=== PATIENT | male | born 1935 | race Caucasian/White ===

== ENCOUNTER 2017-10-28 11:02 | Emergency (ER) | payer MEDICARE, OTHER ==
[~2017-10-28] VITALS: Ht 175.3 cm; Wt 102.1 kg
[~2017-10-28 11:02] MED LIST: ASPI-1265 PO; ATOR20TA66 PO; BENA40TA2 PO; DOCU100C40 PO; HYDR-565 PO; METO25TA6 PO; NITR0.4T51 SL; TERA10CA4 PO; TERA5CAP4 PO; TICA90TA PO
[2017-10-28] MEDS ORDERED: GUAI-647 PO (11:26)
[2017-10-28] MEDS ORDERED: CEPH-571 PO (11:26)
[2017-10-28 11:37] VITALS: BP 134/85
== END 2017-10-28 11:38 | disposition home or self-care (01) ==
LOC: ER 11:03
DX: J40 Bronchitis, not specified as acute or chronic (principal); I10 Essential (primary) hypertension; Z88.0 Allergy status to penicillin; Z88.8 Allergy status to other drugs, medicaments and biological substances; Z79.82 Long term (current) use of aspirin
CPT/HCPCS: 99283

== ENCOUNTER 2018-11-17 11:05 | Inpatient (IN) | payer MEDICARE ==
[~2018-11-17] VITALS: Ht 175.3 cm; Wt 89.0 kg
[~2018-11-17 11:05] MED LIST changes: -BENA40TA2 PO; +BENA40TA73 PO; +CEPH-571 PO; +HYDR-4353 PO; -HYDR-565 PO
[2018-11-17] MEDS ORDERED: nitroGLYCERIN 0.4mg/hour patch TD ONE (11:40)
[2018-11-17] MEDS ORDERED: aspirin 81mg tab.chew PO ONE (11:40)
[2018-11-17 11:51] LABS: BASOPHILS % (AUTO) 0.4 % (0-1); EOSINOPHILS # (AUTO) 0.6 X10'3 (0-0.9); EOSINOPHILS % (AUTO) 6.4 % (0-6); HEMATOCRIT 49.1 % (42.0-52.0); HEMOGLOBIN 16.7 g/dl (14.0-17.9); LYMPHOCYTES # (AUTO) 1.3 X10'3 (1.1-4.8); MEAN CORPUSCULAR HEMOGLOBIN 33.3 PG (27.0-31.0); MEAN CORPUSCULAR HGB CONC 34.1 % (33.0-36.5); MEAN CORPUSCULAR VOLUME 97.8 FL (78-98); MEAN PLATELET VOLUME 7.9 FL (7.4-10.4); MONOCYTES # (AUTO) 0.4 X10'3 (0-0.9); MONOCYTES % (AUTO) 4.6 % (2-12); NEUTROPHILS # (AUTO) 7.1 X10'3 (1.8-7.7); NEUTROPHILS % (AUTO) 74.6 % (42-75); PLATELET COUNT 188 X10'3 (140-440); RED BLOOD COUNT 5.02 X10'6 (4.70-6.10); RED CELL DISTRIBUTION WIDTH 14.1 % (11.5-14.5); WHITE BLOOD COUNT 9.5 X10'3 (4.5-11.0)
[2018-11-17 12:02] LABS: INR 1.1 INR; PARTIAL THROMBOPLASTIN TIME 29 SECONDS (22-32); PROTHROMBIN TIME 11.3 SECONDS (9.0-12.0)
[2018-11-17 12:05] LABS: ALANINE AMINOTRANSFERASE 20 U/L (12-78); ALBUMIN 3.6 G/DL (3.4-5.0); ALBUMIN/GLOBULIN RATIO 1.1 (1.1-1.5); ALKALINE PHOSPHATASE 118 IU/L (46-116); ANION GAP 12 (8-16); ASPARTATE AMINO TRANSFERASE 22 U/L (10-37); BILIRUBIN,TOTAL 0.8 MG/DL (0.1-1.0); BLOOD UREA NITROGEN 13 MG/DL (7-18); BUN/CREATININE RATIO 14.4 (5.4-32.0); CALCIUM 8.7 MG/DL (8.5-10.1); CHLORIDE 105 MMOL/L (99-107); GLUCOSE 115 MG/DL (70-104); POTASSIUM 3.5 MMOL/L (3.5-5.1); SODIUM 141 MMOL/L (135-145); TOTAL CARBON DIOXIDE 24.1 MMOL/L (24-32); eGFR 80 ML/MIN
[2018-11-17] MEDS ORDERED: OXYC-150 PO (12:27)
[2018-11-17] MEDS ORDERED: TERA5CAP4 PO (12:28)
[2018-11-17] MEDS ORDERED: BENA40TA8 PO (12:28)
[2018-11-17] MEDS ORDERED: DOCU-28 PO (12:28)
[2018-11-17] MEDS ORDERED: GABA-532 PO (12:38)
[2018-11-17] MEDS ORDERED: METO25TA6 PO (12:39)
[2018-11-17 13:11] LABS: CLARITY,URINE CLEAR (Clear); COLOR,URINE YELLOW (Yellow); GLUCOSE, URINE NEGATIVE (Neg); KETONES,URINE 15 mg/dl (Neg); LEUKOCYTE ESTERASE ,URINE NEGATIVE (Neg); NITRITES, URINE NEGATIVE (Neg); OCCULT BLOOD,URINE NEGATIVE (Neg); PH,URINE 5.5 (4.8-8.0); PROTEIN,URINE NEGATIVE (Neg); UROBILINOGEN,URINE 0.2 E.U/dL (0.2-1.0)
[2018-11-17 13:12] LABS: UA COLLECTION TYPE URINAL
[2018-11-17] MEDS ORDERED: mag hydrox/Alum hydrox/simeth 30ml oral suspension PO PRN (14:15)
[2018-11-17] MEDS ORDERED: magnesium 4gm in 100ml NS 100 ML IV PRN (14:15)
[2018-11-17] MEDS ORDERED: potassium Cl 40MEQ/NS 500ml 500 ML IV PRN ×2 (14:15)
[2018-11-17] MEDS ORDERED: ondansetron/PF 4mg/2ml inj IV PRN (14:15)
[2018-11-17] MEDS ORDERED: potassium Cl 20 mEq SR tablet PO PRN ×2 (14:15)
[2018-11-17] MEDS ORDERED: ipratropium/albuterol 3ml nebule NEB PRN (14:15)
[2018-11-17] MEDS ORDERED: magnesium hydroxide 30ml (MOM) UD suspension PO PRN (14:15)
[2018-11-17] MEDS ORDERED: magnesium 2GM in 50ml NS 50 ML IV PRN (14:15)
[2018-11-17] MEDS ORDERED: heparin 10,000 units/1 ML INJ IV PRN (14:25)
[2018-11-17] MEDS ORDERED: docusate sod 100mg capsule PO PRN (14:25)
[2018-11-17] MEDS ORDERED: heparin 10,000 units/1 ML INJ IV ONE (14:25)
[2018-11-17] MEDS ORDERED: oxyCODONE/APAP 10/325mg tablet PO PRN (14:25)
[2018-11-17] MEDS: heparin 25,000 UNIT/250ml bag 250 ML IV SCH (16:56)
--- NOTE | 2018-11-17 18:28 | NUR ---
Problems reprioritized. Patient report given, questions answered & plan of care reviewed with JUAN DIEGO Laguna.
[2018-11-17 19:00] VITALS: BP 110/65
[2018-11-17] MEDS: gabapentin 300mg capsule PO SCH (20:12)
[2018-11-17] MEDS: terazosin 5mg capsule PO SCH (20:12)
[2018-11-17] MEDS: metoprolol tartrate 25mg tablet PO SCH (20:13)
[2018-11-17] MEDS: acetaminophen 325mg tablet PO PRN (20:14)
[2018-11-17 23:00] VITALS: BP 125/76
[2018-11-18] MEDS ORDERED: morphine 4 MG/ML inj SYRINge IV ONE (04:40)
[2018-11-18 06:00] VITALS: BP 139/77
[2018-11-18 06:47] LABS: BASOPHILS % (AUTO) 0.4 % (0-1); EOSINOPHILS # (AUTO) 0.6 X10'3 (0-0.9); EOSINOPHILS % (AUTO) 6.2 % (0-6); HEMATOCRIT 46.8 % (42.0-52.0); HEMOGLOBIN 15.6 g/dl (14.0-17.9); LYMPHOCYTES # (AUTO) 1.8 X10'3 (1.1-4.8); LYMPHOCYTES % (AUTO) 19.3 % (21-51); MEAN CORPUSCULAR HEMOGLOBIN 32.9 PG (27.0-31.0); MEAN CORPUSCULAR HGB CONC 33.4 % (33.0-36.5); MEAN CORPUSCULAR VOLUME 98.5 FL (78-98); MEAN PLATELET VOLUME 8.3 FL (7.4-10.4); MONOCYTES # (AUTO) 0.6 X10'3 (0-0.9); MONOCYTES % (AUTO) 6.5 % (2-12); NEUTROPHILS # (AUTO) 6.2 X10'3 (1.8-7.7); NEUTROPHILS % (AUTO) 67.6 % (42-75); PLATELET COUNT 184 X10'3 (140-440); RED BLOOD COUNT 4.75 X10'6 (4.70-6.10); RED CELL DISTRIBUTION WIDTH 14.1 % (11.5-14.5); WHITE BLOOD COUNT 9.2 X10'3 (4.5-11.0)
[2018-11-18 06:55] LABS: ALANINE AMINOTRANSFERASE 17 U/L (12-78); ALBUMIN 3.4 G/DL (3.4-5.0); ALBUMIN/GLOBULIN RATIO 1.1 (1.1-1.5); ALKALINE PHOSPHATASE 107 IU/L (46-116); ANION GAP 11 (8-16); ASPARTATE AMINO TRANSFERASE 22 U/L (10-37); BILIRUBIN,TOTAL 0.8 MG/DL (0.1-1.0); BLOOD UREA NITROGEN 11 MG/DL (7-18); BUN/CREATININE RATIO 12.1 (5.4-32.0); CALCIUM 8.7 MG/DL (8.5-10.1); CHLORIDE 107 MMOL/L (99-107); CHOL/HDL RATIO 4.4 (0.00-4.99); CHOLESTEROL 170 MG/DL (0-200); CREATININE 0.91 MG/DL (0.60-1.10); GLUCOSE 118 MG/DL (70-104); HDL CHOLESTEROL 39 MG/DL (35-60); LDL CHOLESTEROL 118 MG/DL (50-100); POTASSIUM 3.7 MMOL/L (3.5-5.1); SODIUM 144 MMOL/L (135-145); TOTAL CARBON DIOXIDE 25.9 MMOL/L (24-32); TOTAL PROTEIN 6.5 G/DL (6.4-8.2); TRIGLYCERIDES 115 MG/DL (20-135); eGFR 79 ML/MIN
[2018-11-18] MEDS: gabapentin 300mg capsule PO SCH ×2 (07:38→13:00)
[2018-11-18] MEDS: terazosin 5mg capsule PO SCH (07:39)
[2018-11-18] MEDS: acetaminophen 325mg tablet PO PRN (07:39)
[2018-11-18] MEDS: metoprolol tartrate 25mg tablet PO SCH (07:42)
[2018-11-18] MEDS ORDERED: K and/or MAG REPLACEMENT MC SCH (08:00)
[2018-11-18] MEDS ORDERED: lisinopril 20mg tablet PO SCH (08:00)
[2018-11-18 11:00] VITALS: BP 131/73
[2018-11-18] MEDS ORDERED: ATOR20TA66 PO (14:36)
[2018-11-18] MEDS ORDERED: APIX5TAB3 PO (14:36)
[2018-11-18] MEDS: heparin 25,000 UNIT/250ml bag 250 ML IV SCH (15:22)
--- NOTE | 2018-11-18 16:48 | NUR ---
Removed pt.'s tele monitor and IV, pt tolerated well. Pt. accompanied by friend and wheeled down to private vehicle. Pt. took with him a bag of belongings, Ian's bedside medication, and cane. Pt. in stable condition at time of discharge, no longer on the unit.
== END 2018-11-18 16:45 | disposition home or self-care (01) | DRG 309 ==
LOC: ER 11:05 → ED HOLD 14:14 → PCU 3S 18:47
PROVIDERS: ADMIT Family Medicine; ATTEND Family Medicine
DX: I48.91 Unspecified atrial fibrillation (principal); G93.40 Encephalopathy, unspecified; R07.89 Other chest pain; I25.10 Atherosclerotic heart disease of native coronary artery without angina pectoris; N40.0 Benign prostatic hyperplasia without lower urinary tract symptoms; E78.5 Hyperlipidemia, unspecified; E78.00 Pure hypercholesterolemia, unspecified; I10 Essential (primary) hypertension; Z95.5 Presence of coronary angioplasty implant and graft; Z88.0 Allergy status to penicillin; Z88.1 Allergy status to other antibiotic agents; Z79.01 Long term (current) use of anticoagulants; Z87.891 Personal history of nicotine dependence; Z80.52 Family history of malignant neoplasm of bladder
CPT/HCPCS: 36415; 71045; 80053; 80061; 81003; 83735; 84484; 85025; 85610; 85730; 93005; 93306; 93880; 94760; 99285; G0378; J1644; J2270

== ENCOUNTER 2019-10-29 09:55 | Emergency (ER) | payer MEDICARE ==
[~2019-10-29] VITALS: Ht 177.8 cm; Wt 90.0 kg
[~2019-10-29 09:55] MED LIST changes: +APIX5TAB3 PO; -ASPI-1265 PO; -BENA40TA73 PO; +BENA40TA8 PO; -CEPH-571 PO; +DOCU-28 PO; -DOCU100C40 PO; +GABA-532 PO; -HYDR-4353 PO; -NITR0.4T51 SL; +OXYC-150 PO; -TERA10CA4 PO; -TICA90TA PO
[2019-10-29 10:31] LABS: BASOPHILS # (AUTO) 0.1 X10'3 (0-0.2); EOSINOPHILS # (AUTO) 0.3 X10'3 (0-0.9); EOSINOPHILS % (AUTO) 2.7 % (0-6); HEMATOCRIT 50.5 % (42.0-52.0); HEMOGLOBIN 17.3 g/dl (14.0-17.9); LYMPHOCYTES # (AUTO) 1.4 X10'3 (1.1-4.8); LYMPHOCYTES % (AUTO) 13.5 % (21-51); MEAN CORPUSCULAR HEMOGLOBIN 31.7 PG (27.0-31.0); MEAN CORPUSCULAR HGB CONC 34.2 g/dL (33.0-36.5); MEAN CORPUSCULAR VOLUME 92.6 FL (78-98); MEAN PLATELET VOLUME 7.7 FL (7.4-10.4); MONOCYTES # (AUTO) 0.5 X10'3 (0-0.9); MONOCYTES % (AUTO) 5.2 % (2-12); NEUTROPHILS % (AUTO) 77.6 % (42-75); PLATELET COUNT 260 X10'3 (140-440); RED BLOOD COUNT 5.45 X10'6 (4.70-6.10); RED CELL DISTRIBUTION WIDTH 14.7 % (11.5-14.5); WHITE BLOOD COUNT 10.3 X10'3 (4.5-11.0)
[2019-10-29 10:46] LABS: ALANINE AMINOTRANSFERASE 28 U/L (12-78); ALBUMIN 3.3 G/DL (3.4-5.0); ALBUMIN/GLOBULIN RATIO 0.9 (1.1-1.5); ALKALINE PHOSPHATASE 152 IU/L (46-116); ANION GAP 12 (8-16); ASPARTATE AMINO TRANSFERASE 29 U/L (10-37); BILIRUBIN,TOTAL 1.3 MG/DL (0.1-1.0); BLOOD UREA NITROGEN 12 MG/DL (7-18); BUN/CREATININE RATIO 14.1 (5.4-32.0); CALCIUM 8.8 MG/DL (8.5-10.1); CHLORIDE 104 MMOL/L (99-107); CREATININE 0.85 MG/DL (0.60-1.10); GLUCOSE 101 MG/DL (70-104); POTASSIUM 3.4 MMOL/L (3.5-5.1); SODIUM 142 MMOL/L (135-145); TOTAL CARBON DIOXIDE 26.1 MMOL/L (24-32); TOTAL PROTEIN 7.1 G/DL (6.4-8.2); eGFR 86 ML/MIN
[2019-10-29 12:15] LABS: CLARITY,URINE TURBID (Clear); COLOR,URINE YELLOW (Yellow); PH,URINE 8.5 (4.8-8.0)
[2019-10-29 12:16] LABS: UA COLLECTION TYPE FOLEY CATH
[2019-10-29 12:32] LABS: BACTERIA,URINE FEW /HPF (Neg); MUCUS STRANDS MANY /LPF (Neg); SQUAMOUS EPITHELIAL CELL,UR NONE SEEN /LPF (FEW); WBC,URINE TNTC /HPF (0-4)
[2019-10-29] MEDS ORDERED: CefTRIAXone 1000mg IM Kit (w/lidocaine diluent) IM ONE (12:50)
[2019-10-29] MEDS ORDERED: CEPH500C5 PO (13:01)
[2019-10-29 13:15] VITALS: BP 152/76
--- NOTE | 2019-10-29 13:34 | NUR ---
CSLLED SUSAN LESVIA [phone] FOR TRANSPORTATION.
--- NOTE | 2019-11-01 14:51 | NUR ---
Rx called in to [facility] [place] after receiving urine culture. RX Bactrim DS 1 tab PO BID x 10 days.
== END 2019-10-29 14:45 | disposition home or self-care (01) ==
LOC: ER 09:55
DX: T83.511A Infection and inflammatory reaction due to indwelling urethral catheter, initial encounter (principal); N39.0 Urinary tract infection, site not specified; I25.10 Atherosclerotic heart disease of native coronary artery without angina pectoris; E78.00 Pure hypercholesterolemia, unspecified; I10 Essential (primary) hypertension; F10.99 Alcohol use, unspecified with unspecified alcohol-induced disorder; Z98.61 Coronary angioplasty status; Z88.0 Allergy status to penicillin; Z88.1 Allergy status to other antibiotic agents; Z88.8 Allergy status to other drugs, medicaments and biological substances; Z79.899 Other long term (current) drug therapy; Y65.8 Other specified misadventures during surgical and medical care; Y92.89 Other specified places as the place of occurrence of the external cause; Y90.9 Presence of alcohol in blood, level not specified
CPT/HCPCS: 36415; 51702; 80053; 81001; 85025; 87077; 87088; 87186; 96372; 99284; J0696

== ENCOUNTER 2019-11-22 11:41 | Emergency (ER) | payer MEDICARE ==
[~2019-11-22] VITALS: Ht 177.8 cm; Wt 100.0 kg
[2019-11-22 13:27] LABS: CLARITY,URINE TURBID (Clear); COLOR,URINE YELLOW (Yellow); GLUCOSE, URINE NEGATIVE (Neg); KETONES,URINE NEGATIVE (Neg); LEUKOCYTE ESTERASE ,URINE LARGE (Neg); NITRITES, URINE POSITIVE (Neg); OCCULT BLOOD,URINE LARGE (Neg); PH,URINE 8.5 (4.8-8.0); PROTEIN,URINE 100 mg/dl (Neg); UROBILINOGEN,URINE 0.2 E.U/dL (0.2-1.0)
[2019-11-22 13:32] LABS: UA COLLECTION TYPE FOLEY CATH
[2019-11-22 13:33] LABS: RBC,URINE 50-100 /HPF (0-2); WBC,URINE TNTC /HPF (0-4)
[2019-11-22 13:35] LABS: AMORPHOUS PHOSPHATES 2+
[2019-11-22 13:37] LABS: BACTERIA,URINE 3+ /HPF (Neg); CAL OXALATE CRYSTALS FEW /HPF (NEGATIVE); SQUAMOUS EPITHELIAL CELL,UR FEW /LPF (FEW)
[2019-11-22] MEDS ORDERED: normal saline 1000ML IV soln IVB ONE (13:40)
[2019-11-22] MEDS ORDERED: CefTRIAXone/D5W-Rocephin 1gm 50 ML IV ONE (13:40)
[2019-11-22 14:03] VITALS: BP 138/80
[2019-11-22 14:47] LABS: BASOPHILS # (AUTO) 0.1 X10'3 (0-0.2); BASOPHILS % (AUTO) 0.9 % (0-1); EOSINOPHILS # (AUTO) 0.2 X10'3 (0-0.9); HEMATOCRIT 42.9 % (42.0-52.0); HEMOGLOBIN 14.4 g/dl (14.0-17.9); LYMPHOCYTES % (AUTO) 18.6 % (21-51); MEAN CORPUSCULAR HEMOGLOBIN 31.4 PG (27.0-31.0); MEAN CORPUSCULAR HGB CONC 33.7 g/dL (33.0-36.5); MEAN CORPUSCULAR VOLUME 93.1 FL (78-98); MEAN PLATELET VOLUME 7.7 FL (7.4-10.4); MONOCYTES # (AUTO) 0.7 X10'3 (0-0.9); MONOCYTES % (AUTO) 6.4 % (2-12); NEUTROPHILS # (AUTO) 7.6 X10'3 (1.8-7.7); NEUTROPHILS % (AUTO) 72.1 % (42-75); PLATELET COUNT 227 X10'3 (140-440); RED BLOOD COUNT 4.61 X10'6 (4.70-6.10); RED CELL DISTRIBUTION WIDTH 15.7 % (11.5-14.5); WHITE BLOOD COUNT 10.6 X10'3 (4.5-11.0)
[2019-11-22 15:10] LABS: ALANINE AMINOTRANSFERASE 23 U/L (12-78); ALBUMIN 2.8 G/DL (3.4-5.0); ALBUMIN/GLOBULIN RATIO 0.8 (1.1-1.5); ALKALINE PHOSPHATASE 135 IU/L (46-116); ANION GAP 5 (8-16); ASPARTATE AMINO TRANSFERASE 21 U/L (10-37); BILIRUBIN,TOTAL 0.6 MG/DL (0.1-1.0); BLOOD UREA NITROGEN 13 MG/DL (7-18); CHLORIDE 109 MMOL/L (99-107); CREATININE 0.93 MG/DL (0.60-1.10); GLUCOSE 115 MG/DL (70-104); POTASSIUM 3.6 MMOL/L (3.5-5.1); SODIUM 144 MMOL/L (135-145); TOTAL CARBON DIOXIDE 29.8 MMOL/L (24-32); TOTAL PROTEIN 6.1 G/DL (6.4-8.2); eGFR 77 ML/MIN
[2019-11-22] MEDS ORDERED: LINE600T11 PO (15:30)
== END 2019-11-22 17:54 | disposition home or self-care (01) ==
LOC: ER 11:41
DX: T83.098A Other mechanical complication of other urinary catheter, initial encounter (principal); N39.0 Urinary tract infection, site not specified; I25.10 Atherosclerotic heart disease of native coronary artery without angina pectoris; E78.00 Pure hypercholesterolemia, unspecified; I10 Essential (primary) hypertension; F10.99 Alcohol use, unspecified with unspecified alcohol-induced disorder; Z98.61 Coronary angioplasty status; Z88.0 Allergy status to penicillin; Z88.1 Allergy status to other antibiotic agents; Z79.82 Long term (current) use of aspirin; Y84.6 Urinary catheterization as the cause of abnormal reaction of the patient, or of later complication, without mention of misadventure at the time of the procedure; Y92.89 Other specified places as the place of occurrence of the external cause; Y90.9 Presence of alcohol in blood, level not specified
CPT/HCPCS: 36415; 51702; 80053; 81001; 83605; 85025; 87040; 87077; 87088; 87186; 96365; 99284; J0696; J7030

== ENCOUNTER 2019-12-03 08:20 | Emergency (ER) | payer MEDICARE ==
[~2019-12-03] VITALS: Ht 177.8 cm; Wt 97.7 kg
[~2019-12-03 08:20] MED LIST changes: +LINE600T11 PO
[2019-12-03 08:26] VITALS: BP 175/88
[2019-12-03 10:04] LABS: CLARITY,URINE CLOUDY (Clear); COLOR,URINE YELLOW (Yellow); GLUCOSE, URINE NEGATIVE (Neg); KETONES,URINE TRACE mg/dl (Neg); LEUKOCYTE ESTERASE ,URINE MODERATE (Neg); NITRITES, URINE NEGATIVE (Neg); OCCULT BLOOD,URINE LARGE (Neg); PROTEIN,URINE TRACE mg/dl (Neg); UROBILINOGEN,URINE 0.2 E.U/dL (0.2-1.0)
[2019-12-03 10:13] LABS: UA COLLECTION TYPE FOLEY CATH
[2019-12-03 10:15] LABS: RBC,URINE TNTC /HPF (0-2); WBC,URINE TNTC /HPF (0-4)
[2019-12-03 10:16] LABS: BACTERIA,URINE NONE SEEN /HPF (Neg); MUCUS STRANDS NONE SEEN /LPF (Neg); SQUAMOUS EPITHELIAL CELL,UR NONE SEEN /LPF (FEW)
[2019-12-05] MEDS ORDERED: SERT25TA PO (20:30)
[2019-12-05] MEDS ORDERED: APIX5TAB3 PO (20:56)
[2019-12-07] MEDS ORDERED: CIPR-230 PO (15:08)
== END 2019-12-03 10:54 | disposition home or self-care (01) ==
LOC: ER 08:21
DX: R33.9 Retention of urine, unspecified (principal); I25.10 Atherosclerotic heart disease of native coronary artery without angina pectoris; E78.00 Pure hypercholesterolemia, unspecified; I10 Essential (primary) hypertension; Z95.5 Presence of coronary angioplasty implant and graft; Z88.0 Allergy status to penicillin; Z88.1 Allergy status to other antibiotic agents; Z79.899 Other long term (current) drug therapy
CPT/HCPCS: 51702; 81001; 87077; 87088; 87186; 99284

== ENCOUNTER 2020-01-18 02:01 | Emergency (ER) | payer MEDICARE ==
[~2020-01-18] VITALS: Ht 177.8 cm; Wt 108.0 kg
[~2020-01-18 02:01] MED LIST changes: -ATOR20TA66 PO; -BENA40TA8 PO; -DOCU-28 PO; -GABA-532 PO; -LINE600T11 PO; -METO25TA6 PO; -OXYC-150 PO; +SERT25TA PO; -TERA5CAP4 PO
[2020-01-18] MEDS ORDERED: LIDOcaine 2% 10ml TOPICAL JELLY (Urojet) MM ONE (02:35)
[2020-01-18 02:38] LABS: BASOPHILS # (AUTO) 0.1 X10'3 (0-0.2); HEMATOCRIT 45.3 % (42.0-52.0); HEMOGLOBIN 15.3 g/dl (14.0-17.9); LYMPHOCYTES # (AUTO) 2.8 X10'3 (1.1-4.8); LYMPHOCYTES % (AUTO) 20.7 % (21-51); MEAN CORPUSCULAR HEMOGLOBIN 31.7 PG (27.0-31.0); MEAN CORPUSCULAR HGB CONC 33.8 g/dL (33.0-36.5); MEAN CORPUSCULAR VOLUME 93.8 FL (78-98); MEAN PLATELET VOLUME 8.2 FL (7.4-10.4); MONOCYTES # (AUTO) 0.9 X10'3 (0-0.9); MONOCYTES % (AUTO) 6.4 % (2-12); NEUTROPHILS # (AUTO) 8.9 X10'3 (1.8-7.7); NEUTROPHILS % (AUTO) 64.9 % (42-75); PLATELET COUNT 259 X10'3 (140-440); RED BLOOD COUNT 4.84 X10'6 (4.70-6.10); RED CELL DISTRIBUTION WIDTH 16.1 % (11.5-14.5); WHITE BLOOD COUNT 13.7 X10'3 (4.5-11.0)
[2020-01-18 02:49] LABS: PARTIAL THROMBOPLASTIN TIME 32 SECONDS (22-32)
[2020-01-18 02:53] LABS: ALANINE AMINOTRANSFERASE 19 U/L (12-78); ALBUMIN 3.3 G/DL (3.4-5.0); ALBUMIN/GLOBULIN RATIO 0.9 (1.1-1.5); ALKALINE PHOSPHATASE 180 IU/L (46-116); ANION GAP 4 (8-16); ASPARTATE AMINO TRANSFERASE 22 U/L (10-37); BILIRUBIN,TOTAL 0.4 MG/DL (0.1-1.0); BLOOD UREA NITROGEN 17 MG/DL (7-18); BUN/CREATININE RATIO 19.3 (5.4-32.0); CALCIUM 9.1 MG/DL (8.5-10.1); CHLORIDE 105 MMOL/L (99-107); CREATININE 0.88 MG/DL (0.60-1.10); GLUCOSE 119 MG/DL (70-104); POTASSIUM 3.8 MMOL/L (3.5-5.1); SODIUM 141 MMOL/L (135-145); TOTAL CARBON DIOXIDE 32.5 MMOL/L (24-32); TOTAL PROTEIN 7.1 G/DL (6.4-8.2); eGFR 82 ML/MIN
[2020-01-18 02:59] LABS: CLARITY,URINE CLOUDY (Clear); COLOR,URINE YELLOW (Yellow); GLUCOSE, URINE NEGATIVE (Neg); KETONES,URINE NEGATIVE (Neg); LEUKOCYTE ESTERASE ,URINE MODERATE (Neg); NITRITES, URINE POSITIVE (Neg); OCCULT BLOOD,URINE LARGE (Neg); PH,URINE 6.5 (4.8-8.0); PROTEIN,URINE 100 mg/dl (Neg); UROBILINOGEN,URINE 0.2 E.U/dL (0.2-1.0)
[2020-01-18 03:10] LABS: UA COLLECTION TYPE FOLEY CATH
[2020-01-18 03:11] LABS: BACTERIA,URINE FEW /HPF (Neg); RBC,URINE 20-50 /HPF (0-2); WBC,URINE TNTC /HPF (0-4)
[2020-01-18 03:12] LABS: SQUAMOUS EPITHELIAL CELL,UR NONE SEEN /LPF (FEW)
[2020-01-18] MEDS ORDERED: SULF1TAB49 PO (03:18)
[2020-01-18] MEDS ORDERED: sulfamethoxazole/trimethoprim DS (800/160mg) tablet PO ONE (03:25)
[2020-01-18 05:34] VITALS: BP 106/67
== END 2020-01-18 05:35 ==
LOC: ER 02:02
DX: N39.0 Urinary tract infection, site not specified (principal); I25.10 Atherosclerotic heart disease of native coronary artery without angina pectoris; E78.00 Pure hypercholesterolemia, unspecified; I10 Essential (primary) hypertension; Z98.890 Other specified postprocedural states; Z72.89 Other problems related to lifestyle; Z88.1 Allergy status to other antibiotic agents; Z88.0 Allergy status to penicillin; Z79.899 Other long term (current) drug therapy
CPT/HCPCS: 36415; 51702; 80053; 81001; 83605; 84145; 85025; 85610; 85730; 87040; 87077; 87088; 87186; 99284

== ENCOUNTER 2020-02-11 08:34 | Emergency (ER) | payer MEDICARE ==
[~2020-02-11] VITALS: Ht 177.8 cm; Wt 88.1 kg
--- NOTE | 2020-02-11 09:39 | NUR ---
assumed care of pt from Estraad ADAMSON, pt is ready to be transferred back to [facility], [facility] has been contacted to transport pt, conrado ETA
--- NOTE | 2020-02-11 09:45 | NUR ---
Staff member at [facility] is aware pt is returning to their facility,
[2020-02-11] MEDS ORDERED: acetaminophen 325mg tablet PO ONE (10:00)
[2020-02-11 10:01] VITALS: BP 108/61
--- NOTE | 2020-02-11 10:02 | NUR ---
Dr Everett aware of temp 100.4, placing order for tylenol
--- NOTE | 2020-02-11 10:09 | NUR ---
emptied mcgee bag of 300ml of dark yellow urine, mcgee continues to drain urine, pt is resting quietly
== END 2020-02-11 10:30 | disposition home or self-care (01) ==
LOC: ER 08:35
DX: T83.098A Other mechanical complication of other urinary catheter, initial encounter (principal); R33.9 Retention of urine, unspecified; I25.10 Atherosclerotic heart disease of native coronary artery without angina pectoris; E78.00 Pure hypercholesterolemia, unspecified; I10 Essential (primary) hypertension; Z98.61 Coronary angioplasty status; Z98.890 Other specified postprocedural states; Z88.0 Allergy status to penicillin; Z88.8 Allergy status to other drugs, medicaments and biological substances; Z79.01 Long term (current) use of anticoagulants; Z79.899 Other long term (current) drug therapy; Y83.9 Surgical procedure, unspecified as the cause of abnormal reaction of the patient, or of later complication, without mention of misadventure at the time of the procedure; Y92.89 Other specified places as the place of occurrence of the external cause
CPT/HCPCS: 99284

== ENCOUNTER 2020-02-15 11:52 | Inpatient (IN) | payer MEDICARE ==
[~2020-02-15] VITALS: Ht 177.8 cm; Wt 88.4 kg
[2020-02-15 12:16] LABS: BASOPHILS % (AUTO) 0.2 % (0-1); EOSINOPHILS % (AUTO) 0 % (0-6); HEMATOCRIT 41.1 % (42.0-52.0); HEMOGLOBIN 13.7 g/dl (14.0-17.9); LYMPHOCYTES # (AUTO) 0.4 X10'3 (1.1-4.8); LYMPHOCYTES % (AUTO) 2.1 % (21-51); MEAN CORPUSCULAR HEMOGLOBIN 30.8 PG (27.0-31.0); MEAN CORPUSCULAR HGB CONC 33.4 g/dL (33.0-36.5); MEAN PLATELET VOLUME 9.4 FL (7.4-10.4); MONOCYTES # (AUTO) 0.5 X10'3 (0-0.9); MONOCYTES % (AUTO) 2.8 % (2-12); NEUTROPHILS # (AUTO) 17.2 X10'3 (1.8-7.7); NEUTROPHILS % (AUTO) 94.9 % (42-75); PLATELET COUNT 115 X10'3 (140-440); RED BLOOD COUNT 4.46 X10'6 (4.70-6.10); RED CELL DISTRIBUTION WIDTH 16.1 % (11.5-14.5); WHITE BLOOD COUNT 18.1 X10'3 (4.5-11.0)
[2020-02-15 12:36] LABS: CLARITY,URINE TURBID (Clear); GLUCOSE, URINE NEGATIVE (Neg); KETONES,URINE TRACE mg/dl (Neg); LEUKOCYTE ESTERASE ,URINE LARGE (Neg); NITRITES, URINE NEGATIVE (Neg); OCCULT BLOOD,URINE LARGE (Neg); PROTEIN,URINE 100 mg/dl (Neg)
[2020-02-15 12:40] LABS: UA COLLECTION TYPE FOLEY CATH
[2020-02-15 12:41] LABS: COLOR,URINE DARK YELLOW (Yellow)
[2020-02-15 12:43] LABS: RBC,URINE 50-100 /HPF (0-2); WBC,URINE TNTC /HPF (0-4)
[2020-02-15 12:44] LABS: BACTERIA,URINE 2+ /HPF (Neg); CAL OXALATE CRYSTALS 1+ /HPF (NEGATIVE); MUCUS STRANDS NONE SEEN /LPF (Neg); SQUAMOUS EPITHELIAL CELL,UR NONE SEEN /LPF (FEW)
[2020-02-15 12:49] LABS: ALANINE AMINOTRANSFERASE 29 U/L (12-78); ALBUMIN 2.3 G/DL (3.4-5.0); ALBUMIN/GLOBULIN RATIO 0.6 (1.1-1.5); ALKALINE PHOSPHATASE 130 IU/L (46-116); ANION GAP 8 (8-16); ASPARTATE AMINO TRANSFERASE 45 U/L (10-37); BILIRUBIN,TOTAL 1.2 MG/DL (0.1-1.0); BLOOD UREA NITROGEN 40 MG/DL (7-18); BUN/CREATININE RATIO 30.5 (5.4-32.0); CALCIUM 8.6 MG/DL (8.5-10.1); CHLORIDE 99 MMOL/L (99-107); CREATININE 1.31 MG/DL (0.60-1.10); GLUCOSE 148 MG/DL (70-104); POTASSIUM 3.5 MMOL/L (3.5-5.1); SODIUM 132 MMOL/L (135-145); TOTAL CARBON DIOXIDE 24.6 MMOL/L (24-32); eGFR 52 ML/MIN
[2020-02-15] MEDS ORDERED: SERT-153 PO (13:12)
[2020-02-15] MEDS ORDERED: BENA40TA73 PO (13:12)
[2020-02-15] MEDS ORDERED: vancomycin/NS 1 GM ADD-VANTAGE 250 ML IV ONE (13:20)
[2020-02-15] MEDS ORDERED: ondansetron/PF 4mg/2ml inj IV PRN (13:25)
[2020-02-15] MEDS ORDERED: mag hydrox/Alum hydrox/simeth 30ml oral suspension PO PRN (13:25)
[2020-02-15] MEDS: normal saline 1000ml 1,000 ML IV SCH ×2 (13:50→23:44)
[2020-02-15 16:01] VITALS: BP 96/53
--- NOTE | 2020-02-15 17:43 | NUR ---
patient to room 347 A from the ED. Patient in mild pain from chronic back pain. Patient tucked into bed, BLL, call light in reach, nonslip socks on patient.
[2020-02-15] MEDS: levoFLOXACIN-Levaquin 500mg/D5 100 ML IV SCH (18:15)
--- NOTE | 2020-02-15 18:31 | NUR ---
Problems reprioritized. Patient report given, questions answered & plan of care reviewed with JUAN DIEGO [place].
[2020-02-15] MEDS: apixaban 5mg tablet PO SCH (19:48)
[2020-02-15] MEDS: heparin, porcine 5000 units/ml vial SQ SCH (19:48)
[2020-02-15] MEDS: acetaminophen 325mg tablet PO PRN (19:49)
[2020-02-15 20:00] VITALS: BP 107/56
[2020-02-16] VITALS: BP 101/50
[2020-02-16] MEDS ORDERED: cefepime 1GM in D5W 50mL 50 ML IV SCH
[2020-02-16] MEDS: acetaminophen 325mg tablet PO PRN (03:43)
[2020-02-16 05:45] LABS: BASOPHILS % (AUTO) 0.1 % (0-1); EOSINOPHILS % (AUTO) 0.3 % (0-6); HEMATOCRIT 38.8 % (42.0-52.0); HEMOGLOBIN 12.8 g/dl (14.0-17.9); LYMPHOCYTES # (AUTO) 0.6 X10'3 (1.1-4.8); LYMPHOCYTES % (AUTO) 3.6 % (21-51); MEAN CORPUSCULAR HEMOGLOBIN 31.2 PG (27.0-31.0); MEAN CORPUSCULAR VOLUME 94.3 FL (78-98); MONOCYTES # (AUTO) 0.4 X10'3 (0-0.9); MONOCYTES % (AUTO) 2.4 % (2-12); NEUTROPHILS # (AUTO) 14.5 X10'3 (1.8-7.7); NEUTROPHILS % (AUTO) 93.6 % (42-75); PLATELET COUNT 86 X10'3 (140-440); RED BLOOD COUNT 4.11 X10'6 (4.70-6.10); WHITE BLOOD COUNT 15.4 X10'3 (4.5-11.0)
[2020-02-16 06:03] LABS: ANION GAP 7 (8-16); BLOOD UREA NITROGEN 39 MG/DL (7-18); BUN/CREATININE RATIO 31.2 (5.4-32.0); CALCIUM 8.3 MG/DL (8.5-10.1); CHLORIDE 102 MMOL/L (99-107); CREATININE 1.25 MG/DL (0.60-1.10); GLUCOSE 100 MG/DL (70-104); POTASSIUM 3.8 MMOL/L (3.5-5.1); SODIUM 136 MMOL/L (135-145); TOTAL CARBON DIOXIDE 26.8 MMOL/L (24-32); eGFR 55 ML/MIN
--- NOTE | 2020-02-16 06:55 | NUR ---
Patient in room TERRY 347. I have received report from Bertin ADAMSON and had the opportunity to ask questions and assume patient care.
[2020-02-16] MEDS: levoFLOXACIN-Levaquin 500mg/D5 100 ML IV SCH (07:18)
[2020-02-16] MEDS: sertraline 50mg tablet PO SCH (07:18)
[2020-02-16] MEDS: apixaban 5mg tablet PO SCH ×2 (07:18→20:12)
[2020-02-16] MEDS: heparin, porcine 5000 units/ml vial SQ SCH (08:00)
[2020-02-16] MEDS: lisinopril 20mg tablet PO SCH (08:00)
[2020-02-16] MEDS ORDERED: acetaminophen 325mg tablet PO PRN (10:30)
[2020-02-16 11:30] VITALS: BP 99/52
[2020-02-16] MEDS: normal saline 1000ml 1,000 ML IV SCH ×2 (11:37→19:25)
[2020-02-16] MEDS: HYDROcodone/acetaminophen 5mg/325mg tablet PO PRN ×3 (11:37→20:12)
[2020-02-16] MEDS: VANCOmycin 1250MG/NS 250ml Bag 250 ML IV SCH (14:00)
[2020-02-16] MEDS ORDERED: VANCOMYCIN 1,500MG inj. 1,500 MG in normal saline 500ml IV soln 500 ML IV SCH (14:00)
--- NOTE | 2020-02-16 18:15 | NUR ---
Problems reprioritized. Patient report given, questions answered & plan of care reviewed with Bertin ADAMSON.
[2020-02-16 20:00] VITALS: BP 108/57
[2020-02-16] MEDS: lactobacillus rhamnosus 10,000 MMU CELLS/CAPSULE PO SCH (20:12)
[2020-02-17] VITALS: BP 110/62
[2020-02-17] MEDS: HYDROcodone/acetaminophen 5mg/325mg tablet PO PRN ×2 (04:28→10:18)
[2020-02-17] MEDS: normal saline 1000ml 1,000 ML IV SCH ×3 (05:25→20:45)
[2020-02-17 06:12] LABS: BASOPHILS % (AUTO) 0.1 % (0-1); EOSINOPHILS # (AUTO) 0.1 X10'3 (0-0.9); EOSINOPHILS % (AUTO) 0.8 % (0-6); HEMATOCRIT 38.3 % (42.0-52.0); HEMOGLOBIN 12.5 g/dl (14.0-17.9); MEAN CORPUSCULAR HEMOGLOBIN 30.9 PG (27.0-31.0); MEAN CORPUSCULAR HGB CONC 32.5 g/dL (33.0-36.5); MEAN CORPUSCULAR VOLUME 94.8 FL (78-98); MEAN PLATELET VOLUME 9.6 FL (7.4-10.4); MONOCYTES # (AUTO) 0.8 X10'3 (0-0.9); MONOCYTES % (AUTO) 4.6 % (2-12); NEUTROPHILS # (AUTO) 14.6 X10'3 (1.8-7.7); NEUTROPHILS % (AUTO) 88.5 % (42-75); PLATELET COUNT 89 X10'3 (140-440); RED BLOOD COUNT 4.04 X10'6 (4.70-6.10); RED CELL DISTRIBUTION WIDTH 16.1 % (11.5-14.5); WHITE BLOOD COUNT 16.5 X10'3 (4.5-11.0)
[2020-02-17 06:24] LABS: ALBUMIN 1.8 G/DL (3.4-5.0); ANION GAP 9 (8-16); BLOOD UREA NITROGEN 42 MG/DL (7-18); BUN/CREATININE RATIO 34.7 (5.4-32.0); CALCIUM 8.7 MG/DL (8.5-10.1); CHLORIDE 107 MMOL/L (99-107); CREATININE 1.21 MG/DL (0.60-1.10); GLUCOSE 104 MG/DL (70-104); POTASSIUM 3.8 MMOL/L (3.5-5.1); SODIUM 141 MMOL/L (135-145); TOTAL CARBON DIOXIDE 25.1 MMOL/L (24-32); eGFR 57 ML/MIN
--- NOTE | 2020-02-17 06:51 | NUR ---
Patient in room TERRY 347. I have received report from Bertin ADAMSON and had the opportunity to ask questions and assume patient care. Patient having back pain, lungs are audibly wheezy, patient felt clammy to the touch checked patients blood sugar he is 106 and patient denies being diabetic. Will continue to monitor and address with
[2020-02-17 07:00] VITALS: BP 115/49
[2020-02-17] MEDS: apixaban 5mg tablet PO SCH ×2 (07:38→22:30)
[2020-02-17] MEDS: lactobacillus rhamnosus 10,000 MMU CELLS/CAPSULE PO SCH ×2 (07:39→22:30)
[2020-02-17] MEDS: sertraline 50mg tablet PO SCH (07:39)
--- NOTE | 2020-02-17 07:52 | NUR ---
PAGER ID: [phone] MESSAGE: Sandra-Surg [id number] Re: king Milan patient states he is allergic to Levaquin and it is ordered for him he gets a rash Addendum: 02/17/20 at 1851 by Sandra Banuelos RN 08 Dr Gibson aware of adverse reaction states ok to give to patient.
[2020-02-17] MEDS: levoFLOXACIN 250mg tablet PO SCH (10:17)
[2020-02-17 11:00] VITALS: BP 118/53
[2020-02-17] MEDS: benzonatate 100mg capsule PO PRN ×2 (11:34→22:30)
--- NOTE | 2020-02-17 12:48 | NUR ---
Clamped patients mcgee to get urine sample
[2020-02-17] MEDS: lisinopril 20mg tablet PO SCH (13:06)
[2020-02-17 14:18] LABS: CLARITY,URINE CLOUDY (Clear); COLOR,URINE AMBER (Yellow); GLUCOSE, URINE NEGATIVE (Neg); KETONES,URINE TRACE mg/dl (Neg); LEUKOCYTE ESTERASE ,URINE MODERATE (Neg); NITRITES, URINE NEGATIVE (Neg); OCCULT BLOOD,URINE LARGE (Neg); PROTEIN,URINE 30 mg/dl (Neg)
[2020-02-17 14:19] LABS: UA COLLECTION TYPE FOLEY CATH
[2020-02-17 14:26] LABS: MUCUS STRANDS FEW /LPF (Neg)
[2020-02-17 14:27] LABS: BACTERIA,URINE 2+ /HPF (Neg); RBC,URINE TNTC /HPF (0-2); WBC,URINE 30-50 /HPF (0-4)
[2020-02-17] MEDS: VANCOmycin 1250MG/NS 250ml Bag 250 ML IV SCH (14:28)
[2020-02-17 14:29] LABS: SQUAMOUS EPITHELIAL CELL,UR NONE SEEN /LPF (FEW); TRANSITIONAL EPI CELLS,URINE FEW /HPF
[2020-02-17] MEDS: HYDROcodone/acetaminophen 10/325mg tab PO PRN ×2 (14:32→22:29)
--- NOTE | 2020-02-17 16:42 | NUR ---
PAGER ID: [phone] MESSAGE: Sandra surg [phone] Re: please call re: pain medication
[2020-02-17] MEDS ORDERED: ketorolac tromethamine 15mg/ml inj. IV ONE (16:55)
[2020-02-17 18:15] VITALS: BP 81/37
--- NOTE | 2020-02-17 18:31 | NUR ---
Patient in room TERRY 347. I have received report from Sandra ADAMSON and had the opportunity to ask questions and assume patient care.
--- NOTE | 2020-02-17 18:47 | NUR ---
Problems reprioritized. Patient report given, questions answered & plan of care reviewed with Katja ADAMSON.
[2020-02-17] MEDS ORDERED: normal saline 500ml IV soln 250 ML IV ONE (20:00)
[2020-02-18] VITALS (11 sets, daily range): BP systolic 78–105; BP diastolic 35–58
[2020-02-18] MEDS: magnesium hydroxide 30ml (MOM) UD suspension PO PRN (02:28)
[2020-02-18 05:15] LABS: BASOPHILS % (AUTO) 0.2 % (0-1); EOSINOPHILS # (AUTO) 0.3 X10'3 (0-0.9); EOSINOPHILS % (AUTO) 1.8 % (0-6); HEMATOCRIT 33.8 % (42.0-52.0); LYMPHOCYTES % (AUTO) 7.3 % (21-51); MEAN CORPUSCULAR HEMOGLOBIN 30.9 PG (27.0-31.0); MEAN CORPUSCULAR HGB CONC 32.6 g/dL (33.0-36.5); MEAN CORPUSCULAR VOLUME 94.7 FL (78-98); MONOCYTES # (AUTO) 0.8 X10'3 (0-0.9); MONOCYTES % (AUTO) 5.8 % (2-12); NEUTROPHILS # (AUTO) 12.1 X10'3 (1.8-7.7); NEUTROPHILS % (AUTO) 84.9 % (42-75); PLATELET COUNT 114 X10'3 (140-440); RED BLOOD COUNT 3.57 X10'6 (4.70-6.10); RED CELL DISTRIBUTION WIDTH 16.4 % (11.5-14.5); WHITE BLOOD COUNT 14.3 X10'3 (4.5-11.0)
[2020-02-18] MEDS: HYDROcodone/acetaminophen 10/325mg tab PO PRN ×3 (05:17→15:31)
--- NOTE | 2020-02-18 05:17 | NUR ---
Output from FC of 350cc. Bladder scanned patient and residual of 29 ml noted. Continue to monitor.
[2020-02-18 05:34] LABS: ALBUMIN 1.5 G/DL (3.4-5.0); ANION GAP 6 (8-16); BLOOD UREA NITROGEN 56 MG/DL (7-18); BUN/CREATININE RATIO 34.6 (5.4-32.0); CALCIUM 8.6 MG/DL (8.5-10.1); CHLORIDE 111 MMOL/L (99-107); CREATININE 1.62 MG/DL (0.60-1.10); GLUCOSE 114 MG/DL (70-104); POTASSIUM 3.8 MMOL/L (3.5-5.1); SODIUM 142 MMOL/L (135-145); TOTAL CARBON DIOXIDE 24.7 MMOL/L (24-32); eGFR 41 ML/MIN
--- NOTE | 2020-02-18 06:35 | NUR ---
Problems reprioritized. Patient report given, questions answered & plan of care reviewed with Charissa ADAMSON.
--- NOTE | 2020-02-18 06:35 | NUR ---
Patient in room TERRY 347. I have received report from JUAN DIEGO BEDOLLA and had the opportunity to ask questions and assume patient care.
[2020-02-18] MEDS: lisinopril 20mg tablet PO SCH (08:00)
--- NOTE | 2020-02-18 08:40 | NUR ---
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
[2020-02-18] MEDS: sertraline 50mg tablet PO SCH (09:06)
[2020-02-18] MEDS: lactobacillus rhamnosus 10,000 MMU CELLS/CAPSULE PO SCH ×2 (09:06→20:00)
[2020-02-18] MEDS: apixaban 5mg tablet PO SCH (09:06)
[2020-02-18] MEDS: normal saline 1000ml 1,000 ML IV SCH ×2 (12:09→19:11)
[2020-02-18] MEDS: levoFLOXACIN 250mg tablet PO SCH (12:09)
[2020-02-18] MEDS: VANCOmycin 1250MG/NS 250ml Bag 250 ML IV SCH (14:46)
--- NOTE | 2020-02-18 17:10 | NUR ---
PATIENT HAD A 5.9 SECOND PAUSE, CHECKED ON PATIENT, PATIENT OK, PAGED AWAITING CALL BACK Addendum: 02/18/20 at 1852 by Charissa Bonilla RN CALLED BACK, NO NEW ORDERS AT THIS TIME. WILL CONTINUE TO MONITOR
--- NOTE | 2020-02-18 18:25 | NUR ---
Problems reprioritized. Patient report given, questions answered & plan of care reviewed with JUAN DIEGO GARZA.
--- NOTE | 2020-02-18 19:40 | NUR ---
Tele called pt had a [address] Bernal made aware, as well as pt with out put during day of 225ml with lasix given. 250ml bolus given and EKG ordered. Addendum: 02/18/20 at 2037 by Violetta Lala RN Amended: Links added.
[2020-02-18] MEDS ORDERED: normal saline 250ml IV soln 250 ML IV ONE ×2 (20:00→21:00)
--- NOTE | 2020-02-18 20:39 | NUR ---
Dr. Bernal made aware of 8 sec pause, and VS via page system. Dr. Bernal is reviewing EKG w/ TRACEY Gaytan Addendum: 02/18/20 at 0 by Violetta Lala RN Amended: Links added.
--- NOTE | 2020-02-18 21:07 | NUR ---
November and Building Maintenance Repairer here to assist in assessment and transfer to ICU, blood draws, repeat chest Xray Addendum: 02/18/20 at 2225 by Violetta Lala RN Amended: Links added.
[2020-02-18] MEDS ORDERED: albuterol 2.5 MG/3 ML nebule NEB ONE (21:20)
[2020-02-18] MEDS ORDERED: atropine 1 MG/1 ML vial IV ONE (21:45)
[2020-02-18] MEDS ORDERED: atropine 0.1mg/ml 10ml syringe IV ONE (21:45)
[2020-02-18] MEDS ORDERED: albuterol 2.5 MG/3 ML nebule NEB PRN (21:55)
[2020-02-18 21:57] LABS: ALANINE AMINOTRANSFERASE 21 U/L (12-78); ALBUMIN 1.6 G/DL (3.4-5.0); ALBUMIN/GLOBULIN RATIO 0.5 (1.1-1.5); ALKALINE PHOSPHATASE 86 IU/L (46-116); ANION GAP 6 (8-16); ASPARTATE AMINO TRANSFERASE 35 U/L (10-37); BILIRUBIN,TOTAL 1.7 MG/DL (0.1-1.0); BLOOD UREA NITROGEN 68 MG/DL (7-18); BUN/CREATININE RATIO 37.4 (5.4-32.0); CALCIUM 8.4 MG/DL (8.5-10.1); CHLORIDE 112 MMOL/L (99-107); CREATININE 1.82 MG/DL (0.60-1.10); GLUCOSE 103 MG/DL (70-104); SODIUM 142 MMOL/L (135-145); TOTAL CARBON DIOXIDE 24.5 MMOL/L (24-32); TOTAL PROTEIN 5.1 G/DL (6.4-8.2); eGFR 36 ML/MIN
[2020-02-18 22:02] LABS: BASOPHILS % (AUTO) 0.1 % (0-1); EOSINOPHILS # (AUTO) 0.6 X10'3 (0-0.9); EOSINOPHILS % (AUTO) 3.5 % (0-6); HEMATOCRIT 36.6 % (42.0-52.0); HEMOGLOBIN 11.8 g/dl (14.0-17.9); LYMPHOCYTES % (AUTO) 13.1 % (21-51); MEAN CORPUSCULAR HEMOGLOBIN 30.8 PG (27.0-31.0); MEAN CORPUSCULAR HGB CONC 32.2 g/dL (33.0-36.5); MEAN CORPUSCULAR VOLUME 95.7 FL (78-98); MEAN PLATELET VOLUME 8.7 FL (7.4-10.4); MONOCYTES # (AUTO) 1.2 X10'3 (0-0.9); MONOCYTES % (AUTO) 7.9 % (2-12); NEUTROPHILS # (AUTO) 11.8 X10'3 (1.8-7.7); NEUTROPHILS % (AUTO) 75.4 % (42-75); PLATELET COUNT 156 X10'3 (140-440); RED BLOOD COUNT 3.82 X10'6 (4.70-6.10); RED CELL DISTRIBUTION WIDTH 16.6 % (11.5-14.5); WHITE BLOOD COUNT 15.6 X10'3 (4.5-11.0)
[2020-02-18 22:04] LABS: TROPONIN I < 0.04 NG/ML (0.0-0.05)
[2020-02-18 22:15] LABS: PARTIAL THROMBOPLASTIN TIME 42 SECONDS (22-32)
[2020-02-18] MEDS: ISOPROTERENOL IV SCH (22:22)
[2020-02-18] MEDS: NORMAL SALINE IV SCH (22:22)
--- NOTE | 2020-02-18 22:26 | NUR ---
Report called to ARON dhaliwal, Pt transported to room 2009 Addendum: 02/18/20 at 2226 by Violetta Lala RN Amended: Links added.
--- NOTE | 2020-02-18 22:35 | NUR ---
November aware of pt trigeminal ventricular ectopy, per November decrease isuprel dose by half to 1 mcg/min
--- NOTE | 2020-02-18 22:46 | NUR ---
Family member Gracie Stack/Rocael @[phone], who is the career technology teacher/family member for both Mik and his whom has dementia. She was made aware of Pts status and room number and was very grateful for the phone call. Addendum: 02/18/20 at 2250 by Violetta Lala RN Amended: Links added.
[2020-02-18 23:11] LABS: MAGNESIUM 2.6 MG/DL (1.5-2.4); PHOSPHORUS 3.8 MG/DL (2.3-4.5)
[2020-02-19] VITALS (24 sets, daily range): BP systolic 85–147; BP diastolic 29–47
[2020-02-19] MEDS: ipratropium/albuterol 3ml nebule NEB SCH ×7 (00:07→22:36)
[2020-02-19] MEDS: NORMAL SALINE IV SCH ×4 (05:55→23:21)
[2020-02-19] MEDS: ISOPROTERENOL IV SCH ×4 (05:55→23:21)
[2020-02-19 06:14] LABS: BASOPHILS % (AUTO) 0.1 % (0-1); EOSINOPHILS # (AUTO) 0.1 X10'3 (0-0.9); HEMOGLOBIN 12.5 g/dl (14.0-17.9); LYMPHOCYTES # (AUTO) 0.4 X10'3 (1.1-4.8); LYMPHOCYTES % (AUTO) 3.3 % (21-51); MEAN CORPUSCULAR HEMOGLOBIN 31.3 PG (27.0-31.0); MEAN CORPUSCULAR HGB CONC 32.8 g/dL (33.0-36.5); MEAN CORPUSCULAR VOLUME 95.4 FL (78-98); MEAN PLATELET VOLUME 8.6 FL (7.4-10.4); MONOCYTES # (AUTO) 0.9 X10'3 (0-0.9); MONOCYTES % (AUTO) 7.1 % (2-12); NEUTROPHILS # (AUTO) 11.1 X10'3 (1.8-7.7); NEUTROPHILS % (AUTO) 88.5 % (42-75); PLATELET COUNT 168 X10'3 (140-440); RED BLOOD COUNT 3.99 X10'6 (4.70-6.10); RED CELL DISTRIBUTION WIDTH 17.1 % (11.5-14.5); WHITE BLOOD COUNT 12.5 X10'3 (4.5-11.0)
--- NOTE | 2020-02-19 06:18 | NUR ---
Problems reprioritized. Patient report given, questions answered & plan of care reviewed with Art RN.
[2020-02-19 06:42] LABS: ALBUMIN 1.8 G/DL (3.4-5.0); ANION GAP 11 (8-16); BLOOD UREA NITROGEN 70 MG/DL (7-18); BUN/CREATININE RATIO 37.6 (5.4-32.0); CHLORIDE 110 MMOL/L (99-107); CREATININE 1.86 MG/DL (0.60-1.10); GLUCOSE 101 MG/DL (70-104); POTASSIUM 3.9 MMOL/L (3.5-5.1); SODIUM 143 MMOL/L (135-145); TOTAL CARBON DIOXIDE 21.8 MMOL/L (24-32); eGFR 35 ML/MIN
[2020-02-19] MEDS: HYDROcodone/acetaminophen 5mg/325mg tablet PO PRN (06:43)
[2020-02-19] MEDS: lactobacillus rhamnosus 10,000 MMU CELLS/CAPSULE PO SCH ×2 (07:10→19:20)
[2020-02-19] MEDS: sertraline 50mg tablet PO SCH (07:10)
--- NOTE | 2020-02-19 08:13 | NUR ---
Dr. [facility] evaluated pt. He stated that due to pt having positive cultures and positive urine he would not be a good candidate for a pacemaker. Also, with pt back pain and respiratory condition, he would most likely need intubated for the procedure.
[2020-02-19] MEDS ORDERED: furosemide 40mg/4ml inj IV ONE (09:50)
--- NOTE | 2020-02-19 10:30 | NUR ---
Requested ABX from pharmacy
--- NOTE | 2020-02-19 11:13 | NUR ---
Dr Bowens stated we can utilize isopril for BP management. He would like a Map of 65
[2020-02-19] MEDS: MEROPENEM 500MG/50ML-NS IVPB 50 ML IV SCH ×2 (11:18→19:19)
[2020-02-19] MEDS ORDERED: VANCOMYCIN LEVEL IV ONE (13:30)
--- NOTE | 2020-02-19 13:36 | NUR ---
Pt refused lunch, continues to decline pain medication
--- NOTE | 2020-02-19 14:03 | NUR ---
The lab called with a critical vanco trough. I spoke with Dr. Bowens who would like the test repeated at 1900 and Vanco given if possible after that test.
[2020-02-19] MEDS: vancomycin/NS 1 GM ADD-VANTAGE 250 ML X 1 DOSE IV SCH (14:15)
[2020-02-19] MEDS: HYDROcodone/acetaminophen 10/325mg tab PO PRN ×2 (14:27→19:34)
--- NOTE | 2020-02-19 18:30 | NUR ---
Patient in room CICU 2009. I have received report from Art-RN, and had the opportunity to ask questions and assume patient care.
[2020-02-19] MEDS: furosemide 40mg/4ml inj IV SCH (19:19)
[2020-02-19] MEDS ORDERED: enoxaparin 100mg/ml syringe SUBCUT SCH (20:00)
[2020-02-20] VITALS (24 sets, daily range): BP systolic 94–147; BP diastolic 36–55
[2020-02-20] MEDS: ISOPROTERENOL IV SCH ×6 (02:53→20:39)
[2020-02-20] MEDS: NORMAL SALINE IV SCH ×6 (02:53→20:39)
[2020-02-20] MEDS: ipratropium/albuterol 3ml nebule NEB SCH ×6 (03:07→22:52)
[2020-02-20] MEDS: HYDROcodone/acetaminophen 10/325mg tab PO PRN (03:55)
[2020-02-20] MEDS: benzonatate 100mg capsule PO PRN (04:58)
--- NOTE | 2020-02-20 05:14 | NUR ---
patient is alert, oriented, complaining of constant back pain, dry cough, non-compliant with repositioning him.
[2020-02-20 06:16] LABS: HEMATOCRIT 37.5 % (42.0-52.0); HEMOGLOBIN 12.1 g/dl (14.0-17.9); MEAN CORPUSCULAR HEMOGLOBIN 30.7 PG (27.0-31.0); MEAN CORPUSCULAR HGB CONC 32.1 g/dL (33.0-36.5); MEAN CORPUSCULAR VOLUME 95.7 FL (78-98); MEAN PLATELET VOLUME 8.1 FL (7.4-10.4); PLATELET COUNT 233 X10'3 (140-440); RED BLOOD COUNT 3.92 X10'6 (4.70-6.10); RED CELL DISTRIBUTION WIDTH 16.6 % (11.5-14.5); WHITE BLOOD COUNT 16.2 X10'3 (4.5-11.0)
--- NOTE | 2020-02-20 06:25 | NUR ---
Problems reprioritized. Patient report given to Poppy, questions answered & plan of care reviewed with .
[2020-02-20 06:34] LABS: ALBUMIN 1.8 G/DL (3.4-5.0); ANION GAP 13 (8-16); BLOOD UREA NITROGEN 69 MG/DL (7-18); BUN/CREATININE RATIO 43.9 (5.4-32.0); CHLORIDE 111 MMOL/L (99-107); CREATININE 1.57 MG/DL (0.60-1.10); GLUCOSE 116 MG/DL (70-104); POTASSIUM 3.4 MMOL/L (3.5-5.1); SODIUM 146 MMOL/L (135-145); TOTAL CARBON DIOXIDE 22.3 MMOL/L (24-32); eGFR 42 ML/MIN
[2020-02-20] MEDS: furosemide 40mg/4ml inj IV SCH ×2 (07:44→19:43)
[2020-02-20] MEDS: sertraline 50mg tablet PO SCH (07:44)
[2020-02-20] MEDS: lactobacillus rhamnosus 10,000 MMU CELLS/CAPSULE PO SCH ×2 (07:44→19:44)
[2020-02-20] MEDS: enoxaparin 30mg/0.3ml syringe SUBCUT SCH (07:45)
[2020-02-20] MEDS: MEROPENEM 500MG/50ML-NS IVPB 50 ML IV SCH ×2 (07:45→19:43)
[2020-02-20] MEDS: enoxaparin 60mg/0.6ml syringe SUBCUT SCH (07:45)
[2020-02-20 08:44] LABS: TOTAL CELLS COUNTED 100
[2020-02-20 08:58] LABS: ANISOCYTOSIS 1+; PLATELET ESTIMATE NORMAL
[2020-02-20 08:59] LABS: TOXIC GRANULATION 1+
[2020-02-20] MEDS ORDERED: magnesium 2GM in 50ml NS 50 ML IV PRN (10:45)
[2020-02-20] MEDS ORDERED: magnesium 4gm in 100ml NS 100 ML IV PRN (10:45)
--- NOTE | 2020-02-20 11:48 | NUR ---
Initial: Pt admit w/ UTI, sepsis, staph bacteremia, acute renal failure, and sick sinus syndrome. Pt refusing PO heart healthy/pureed/thin meals per ROPE MAKER recs past 5 days since admit w/ notable abdominal pain/nausea. LBM 02/11 8 days constipation likely impacting PO. LORENA d/w RN regarding routine bowel care per MD approval since none yet this admit and receiving norco. Hudson 13 noted to have skin tears to thoracic and R butt otherwise intact. Not appropriate for ONS given meal refusals. Will monitor for PO diet tolerance and additional bowel care needs. Rec: 1. consider diet liberalization to regular/pureed/thin per ROPE MAKER/MD given poor PO hx; encourage PO 2. routine bowel care; consider opioid antagonist IF MD agreeable receiving norco 3. monitor for PO diet tolerance/ONS needs 4. weekly wts Addendum: 02/20/20 at [address] Amended: Links added.
[2020-02-20] MEDS: HYDROmorphone 1 mg/ml syringe IV PRN ×2 (13:01→19:29)
[2020-02-20] MEDS: vancomycin/NS 1 GM ADD-VANTAGE 250 ML X 1 DOSE IV SCH (14:15)
[2020-02-20] MEDS: potassium CL 10mEq/100ml bag 100 ML IV PRN ×4 (14:22→18:21)
[2020-02-20] MEDS ORDERED: iohexol 300mg/ml 100ml inj. ONE (15:03)
--- NOTE | 2020-02-20 17:21 | NUR ---
Placed new mcgee catheter per Dr. Prescott's orders
--- NOTE | 2020-02-20 17:21 | NUR ---
Pt taken to CT without complications. Dilaudid administered for pain management while lying flat
[2020-02-20] MEDS ORDERED: mineral oil/petrolatum ophthal oint EACHEYE PRN (20:45)
[2020-02-21] VITALS (24 sets, daily range): BP systolic 98–151; BP diastolic 36–86
[2020-02-21 00:26] LABS: ALBUMIN 1.6 G/DL (3.4-5.0); ANION GAP 9 (8-16); BLOOD UREA NITROGEN 57 MG/DL (7-18); BUN/CREATININE RATIO 39.6 (5.4-32.0); CALCIUM 8.3 MG/DL (8.5-10.1); CHLORIDE 113 MMOL/L (99-107); CREATININE 1.44 MG/DL (0.60-1.10); GLUCOSE 120 MG/DL (70-104); MAGNESIUM 2.2 MG/DL (1.5-2.4); PHOSPHORUS 3.9 MG/DL (2.3-4.5); POTASSIUM 3.4 MMOL/L (3.5-5.1); SODIUM 148 MMOL/L (135-145); TOTAL CARBON DIOXIDE 26.1 MMOL/L (24-32); eGFR 47 ML/MIN
[2020-02-21 00:27] LABS: BASOPHILS # (AUTO) 0.1 X10'3 (0-0.2); BASOPHILS % (AUTO) 0.5 % (0-1); EOSINOPHILS # (AUTO) 0.2 X10'3 (0-0.9); EOSINOPHILS % (AUTO) 1.1 % (0-6); HEMATOCRIT 35.7 % (42.0-52.0); HEMOGLOBIN 11.5 g/dl (14.0-17.9); LYMPHOCYTES # (AUTO) 0.5 X10'3 (1.1-4.8); LYMPHOCYTES % (AUTO) 3.1 % (21-51); MEAN CORPUSCULAR HEMOGLOBIN 30.7 PG (27.0-31.0); MEAN CORPUSCULAR HGB CONC 32.3 g/dL (33.0-36.5); MEAN PLATELET VOLUME 7.7 FL (7.4-10.4); MONOCYTES # (AUTO) 0.9 X10'3 (0-0.9); MONOCYTES % (AUTO) 5.7 % (2-12); NEUTROPHILS # (AUTO) 13.4 X10'3 (1.8-7.7); NEUTROPHILS % (AUTO) 89.6 % (42-75); PLATELET COUNT 210 X10'3 (140-440); RED BLOOD COUNT 3.76 X10'6 (4.70-6.10); RED CELL DISTRIBUTION WIDTH 16.6 % (11.5-14.5)
[2020-02-21] MEDS: HYDROmorphone 1 mg/ml syringe IV PRN ×4 (01:30→21:39)
[2020-02-21] MEDS: ipratropium/albuterol 3ml nebule NEB SCH ×6 (02:46→23:12)
[2020-02-21] MEDS: ISOPROTERENOL IV SCH ×5 (03:07→21:30)
[2020-02-21] MEDS: NORMAL SALINE IV SCH ×5 (03:07→21:30)
--- NOTE | 2020-02-21 04:21 | NUR ---
message left for wound care to come and see patient for assessment RE: DTI's skin tears. Pictures were taken - see chart. perhaps a clinitron bed? will wait for wound care assessment and recommendation. The current bed has rotation mode unfortunately this bed is not working. controls project engineer aware,
[2020-02-21 04:24] LABS: TOTAL CELLS COUNTED 100
[2020-02-21 04:25] LABS: ANISOCYTOSIS 1+; PLATELET ESTIMATE NORMAL; TOXIC GRANULATION 3+
[2020-02-21] MEDS: potassium CL 10mEq/100ml bag 100 ML IV PRN ×3 (05:29→10:43)
--- NOTE | 2020-02-21 06:51 | NUR ---
Patient in room CICU 2009. I have received report from JUAN DIEGO Correa and had the opportunity to ask questions and assume patient care.
[2020-02-21] MEDS: K and/or MAG REPLACEMENT MC SCH (08:00)
[2020-02-21] MEDS: lactobacillus rhamnosus 10,000 MMU CELLS/CAPSULE PO SCH ×2 (08:00→19:46)
[2020-02-21] MEDS: sertraline 50mg tablet PO SCH (08:00)
[2020-02-21] MEDS: MEROPENEM 500MG/50ML-NS IVPB 50 ML IV SCH (08:39)
[2020-02-21] MEDS: furosemide 40mg/4ml inj IV SCH ×2 (08:39→19:46)
[2020-02-21] MEDS: enoxaparin 60mg/0.6ml syringe SUBCUT SCH (08:40)
[2020-02-21] MEDS: enoxaparin 30mg/0.3ml syringe SUBCUT SCH (08:40)
[2020-02-21 10:39] LABS: CREATINE KINASE 140 U/L (39-308)
[2020-02-21] MEDS: vancomycin/NS 1 GM ADD-VANTAGE 250 ML X 1 DOSE IV SCH (14:07)
--- NOTE | 2020-02-21 14:09 | NUR ---
TF consult: Pt s/p BSS 02/[address] recs pureed food with thin liquids. Pt documented with 0% and refusal of all meals with the exception of 50% PO intake at breakfast 02/16. Per bedside RN pt unable to tolerate any PO at this time. Corpak has been placed. Per KUB report tube extends into the first portion of the duodenum. Pt with increased protein needs r/t admitting dx. TF recommendations below. LBM 02/11. Pt received PRN MoM 02/17. Pt would benefit from routine bowel care for bowel regularity. Will continue to follow closely. Initial: Pt admit w/ UTI, sepsis, staph bacteremia, acute renal failure, and sick sinus syndrome. Pt refusing PO heart healthy/pureed/thin meals per MEDIA COORDINATOR recs past 5 days since admit w/ notable abdominal pain/nausea. LBM 02/11 8 days constipation likely impacting PO. RD d/w RN regarding routine bowel care per MD approval since none yet this admit and receiving norco. Hudson 13 noted to have skin tears to thoracic and R butt otherwise intact. Not appropriate for ONS given meal refusals. Will monitor for PO diet tolerance and additional bowel care needs. Rec: 1. Continuous EN using Vital AF with goal rate of 90 mL/hr to provide: 2160 mL total volume/day, 2592 kcal, 162 g protein, and 1752 mL water 2. Additional 150 mL water flush Q4H 3. Prealbumin q Thursday/; daily weights 4. Diet advancement to regular as medically indicated given poor PO hx with texture modification per ST; F/u BSS prior to PO diet advancement 5. routine bowel care; consider opioid antagonist IF MD agreeable receiving [place] Addendum: 02/21/20 at [address] Amended: Links added.
[2020-02-21] MEDS: magnesium hydroxide 30ml (MOM) UD suspension PO PRN (14:14)
[2020-02-21] MEDS ORDERED: acetaminophen 325mg tablet CORPAK PRN (14:39)
[2020-02-21] MEDS ORDERED: mag hydrox/Alum hydrox/simeth 30ml oral suspension CORPAK PRN (14:41)
[2020-02-21] MEDS ORDERED: magnesium hydroxide 30ml (MOM) UD suspension CORPAK PRN (14:42)
--- NOTE | 2020-02-21 18:21 | NUR ---
Problems reprioritized. Patient report given, questions answered & plan of care reviewed with JUAN DIEGO Yeager.
--- NOTE | 2020-02-21 18:25 | NUR ---
Patient in room CICU 2009. I have received report from Karlie Lr RN and had the opportunity to ask questions and assume patient care.
--- NOTE | 2020-02-21 22:28 | NUR ---
Problems reprioritized. Patient report given, questions answered & plan of care reviewed with Sara ADAMSON.
--- NOTE | 2020-02-21 22:37 | NUR ---
Received patient report from Eli ADAMSON
--- NOTE | 2020-02-21 23:50 | NUR ---
Have reviewed and agree with previous RN's assessment.
[2020-02-22] VITALS (24 sets, daily range): BP systolic 114–146; BP diastolic 37–60
[2020-02-22] MEDS: ISOPROTERENOL IV SCH ×5 (00:31→17:46)
[2020-02-22] MEDS: NORMAL SALINE IV SCH ×5 (00:31→17:46)
[2020-02-22] MEDS: ipratropium/albuterol 3ml nebule NEB SCH ×6 (02:49→23:25)
[2020-02-22] MEDS: HYDROmorphone 1 mg/ml syringe IV PRN (04:27)
[2020-02-22 05:08] LABS: BASOPHILS % (AUTO) 0.2 % (0-1); EOSINOPHILS # (AUTO) 0.1 X10'3 (0-0.9); EOSINOPHILS % (AUTO) 0.7 % (0-6); HEMATOCRIT 35.1 % (42.0-52.0); HEMOGLOBIN 11.3 g/dl (14.0-17.9); LYMPHOCYTES # (AUTO) 0.7 X10'3 (1.1-4.8); LYMPHOCYTES % (AUTO) 5.2 % (21-51); MEAN CORPUSCULAR HEMOGLOBIN 30.6 PG (27.0-31.0); MEAN CORPUSCULAR HGB CONC 32.3 g/dL (33.0-36.5); MEAN PLATELET VOLUME 7.6 FL (7.4-10.4); MONOCYTES # (AUTO) 0.9 X10'3 (0-0.9); MONOCYTES % (AUTO) 6.6 % (2-12); NEUTROPHILS # (AUTO) 12.5 X10'3 (1.8-7.7); NEUTROPHILS % (AUTO) 87.3 % (42-75); PLATELET COUNT 247 X10'3 (140-440); RED CELL DISTRIBUTION WIDTH 16.6 % (11.5-14.5); WHITE BLOOD COUNT 14.3 X10'3 (4.5-11.0)
[2020-02-22 05:28] LABS: ALANINE AMINOTRANSFERASE 18 U/L (12-78); ALBUMIN 1.6 G/DL (3.4-5.0); ALKALINE PHOSPHATASE 110 IU/L (46-116); ANION GAP 8 (8-16); ASPARTATE AMINO TRANSFERASE 43 U/L (10-37); BILIRUBIN,TOTAL 3.9 MG/DL (0.1-1.0); BLOOD UREA NITROGEN 49 MG/DL (7-18); BUN/CREATININE RATIO 40.8 (5.4-32.0); CALCIUM 8.4 MG/DL (8.5-10.1); CHLORIDE 116 MMOL/L (99-107); GLUCOSE 162 MG/DL (70-104); SODIUM 152 MMOL/L (135-145); TOTAL CARBON DIOXIDE 28.4 MMOL/L (24-32); eGFR 58 ML/MIN
[2020-02-22 05:41] LABS: ALBUMIN/GLOBULIN RATIO 0.4 (1.1-1.5); TOTAL PROTEIN 5.6 G/DL (6.4-8.2)
[2020-02-22] MEDS ORDERED: POTASSIUM BICARB 20meq eff tab 20 MEQ TABLET.EFF CORPAK PRN (05:50)
--- NOTE | 2020-02-22 06:24 | NUR ---
Patient report given to Natalya ADAMSON
[2020-02-22] MEDS: K and/or MAG REPLACEMENT MC SCH (07:15)
[2020-02-22] MEDS: POTASSIUM BICARB 20meq eff tab 20 MEQ TABLET.EFF CORPAK PRN ×3 (08:04→16:12)
[2020-02-22 08:07] LABS: ANISOCYTOSIS 1+; LARGE PLATELETS FEW; PLATELET ESTIMATE NORMAL; TOTAL CELLS COUNTED 100
[2020-02-22] MEDS: sertraline 50mg tablet CORPAK SCH (08:07)
[2020-02-22] MEDS: lactobacillus rhamnosus 10,000 MMU CELLS/CAPSULE PO SCH ×2 (08:07→19:47)
[2020-02-22] MEDS: furosemide 40mg/4ml inj IV SCH ×2 (08:07→19:47)
[2020-02-22] MEDS: HYDROcodone/acetaminophen 10/325mg tab PO PRN ×3 (08:08→19:48)
[2020-02-22] MEDS: enoxaparin 60mg/0.6ml syringe SUBCUT SCH (08:08)
[2020-02-22] MEDS: enoxaparin 30mg/0.3ml syringe SUBCUT SCH (08:09)
[2020-02-22] MEDS: vancomycin/NS 1 GM ADD-VANTAGE 250 ML X 1 DOSE IV SCH (14:56)
--- NOTE | 2020-02-22 21:00 | NUR ---
Reviewed and agree with previous charted assessment from Zoraida ADAMSON
[2020-02-22] MEDS: acetaminophen 325mg/10.15ml oral unit dose solution CORPAK PRN (21:26)
[2020-02-23] VITALS (12 sets, daily range): BP systolic 118–143; BP diastolic 36–60
[2020-02-23] MEDS: ipratropium/albuterol 3ml nebule NEB SCH ×2 (03:20→07:44)
[2020-02-23] MEDS: NORMAL SALINE IV SCH (04:13)
[2020-02-23] MEDS: ISOPROTERENOL IV SCH (04:13)
[2020-02-23] MEDS: acetaminophen 325mg/10.15ml oral unit dose solution CORPAK PRN (04:39)
--- NOTE | 2020-02-23 04:50 | NUR ---
Patient in room CICU 2009. I have received report from Marti ADAMSON and had the opportunity to ask questions and assume patient care. Assessed patient, medicated for pain. Will continue to monitor.
--- NOTE | 2020-02-23 04:52 | NUR ---
Problems reprioritized. Patient report given, questions answered & plan of care reviewed with Esther ADAMSON.
[2020-02-23] MEDS: HYDROcodone/acetaminophen 10/325mg tab PO PRN ×3 (05:05→14:42)
[2020-02-23 05:07] LABS: BASOPHILS # (AUTO) 0.1 X10'3 (0-0.2); BASOPHILS % (AUTO) 0.4 % (0-1); EOSINOPHILS # (AUTO) 0.2 X10'3 (0-0.9); EOSINOPHILS % (AUTO) 1.4 % (0-6); HEMATOCRIT 32.7 % (42.0-52.0); HEMOGLOBIN 10.8 g/dl (14.0-17.9); LYMPHOCYTES # (AUTO) 0.9 X10'3 (1.1-4.8); LYMPHOCYTES % (AUTO) 6.1 % (21-51); MEAN CORPUSCULAR HEMOGLOBIN 31.1 PG (27.0-31.0); MEAN CORPUSCULAR VOLUME 94.2 FL (78-98); MONOCYTES # (AUTO) 0.8 X10'3 (0-0.9); MONOCYTES % (AUTO) 5.4 % (2-12); NEUTROPHILS # (AUTO) 13.1 X10'3 (1.8-7.7); NEUTROPHILS % (AUTO) 86.7 % (42-75); PLATELET COUNT 264 X10'3 (140-440); RED BLOOD COUNT 3.47 X10'6 (4.70-6.10); RED CELL DISTRIBUTION WIDTH 16.4 % (11.5-14.5); WHITE BLOOD COUNT 15.1 X10'3 (4.5-11.0)
[2020-02-23 05:34] LABS: ALANINE AMINOTRANSFERASE 21 U/L (12-78); ALBUMIN 1.5 G/DL (3.4-5.0); ALBUMIN/GLOBULIN RATIO 0.4 (1.1-1.5); ALKALINE PHOSPHATASE 202 IU/L (46-116); ANION GAP 1 (8-16); ASPARTATE AMINO TRANSFERASE 47 U/L (10-37); BILIRUBIN,TOTAL 2.9 MG/DL (0.1-1.0); BLOOD UREA NITROGEN 44 MG/DL (7-18); BUN/CREATININE RATIO 39.6 (5.4-32.0); CHLORIDE 116 MMOL/L (99-107); CREATININE 1.11 MG/DL (0.60-1.10); GLUCOSE 146 MG/DL (70-104); LACTATE DEHYDROGENASE 223 U/L (85-227); POTASSIUM 3.7 MMOL/L (3.5-5.1); PREALBUMIN 10.1 MG/DL (19-36); SODIUM 151 MMOL/L (135-145); TOTAL CARBON DIOXIDE 34.5 MMOL/L (24-32); TOTAL PROTEIN 5.5 G/DL (6.4-8.2); eGFR 63 ML/MIN
[2020-02-23 06:13] LABS: RHEUM FACTOR QUAL REFLEX TITER NEGATIVE (Neg)
--- NOTE | 2020-02-23 07:04 | NUR ---
Late entry for teaching done during assessment on 02/20 Addendum: 02/23/20 at 0705 by Gavi Witt RN Amended: Links added.
[2020-02-23] MEDS: K and/or MAG REPLACEMENT MC SCH (08:00)
[2020-02-23] MEDS: lactobacillus rhamnosus 10,000 MMU CELLS/CAPSULE PO SCH (08:06)
[2020-02-23] MEDS: furosemide 40mg/4ml inj IV SCH (08:06)
[2020-02-23] MEDS: sertraline 50mg tablet CORPAK SCH (08:06)
[2020-02-23] MEDS: enoxaparin 60mg/0.6ml syringe SUBCUT SCH (08:07)
[2020-02-23] MEDS: enoxaparin 30mg/0.3ml syringe SUBCUT SCH (08:07)
--- NOTE | 2020-02-23 10:08 | NUR ---
Spoke in length with both patient and patient step daughter, Gracie. Patient indicates that he does not want a pacemaker and does not want abx to clear the infection and have a PPM placed. he states that he just wants to be made comfortable and that he is ready to go. Gracie confirmed the story and stated that they have talked about end of life care in the past when he was healthy, and he would not want any aggressive care, including that he would want to be a DNR and would not want artificial nutrition. She also stated that he recently was told he needed a PPM, but he refused, and all he wanted was to sit in his chair and be comfortable until it was his time to go.
[2020-02-23] MEDS ORDERED: LORazepam 2 mg/ml vial IV PRN (10:30)
--- NOTE | 2020-02-23 11:05 | NUR ---
Pt has been made DNR w/ comfort care. No BM since 02/11 and all bowel care stopped. Has not received adequate bowel care this admit. Would benefit from routine bowel care for comfort measures. Rec: 1. routine bowel care; consider opioid antagonist IF MD agreeable receiving [place] Addendum: 02/23/20 at [address] Amended: Links added.
[2020-02-23] MEDS ORDERED: VANCOMYCIN LEVEL IV ONE (13:30)
[2020-02-23] MEDS: HYDROmorphone 1 mg/ml syringe IV PRN (17:06)
--- NOTE | 2020-02-23 17:25 | NUR ---
Patient in room ORTHO 4008. I have received report from CHUCK ADAMSON and had the opportunity to ask questions and assume patient care.
--- NOTE | 2020-02-23 17:32 | NUR ---
Patient transferred to [facility] with no belongings
--- NOTE | 2020-02-23 18:10 | NUR ---
Problems reprioritized. Patient report given, questions answered & plan of care reviewed with JESSY ADAMSON.
--- NOTE | 2020-02-23 18:18 | NUR ---
Patient in room ORTHO 4008. I have received report from JUAN DIEGO Paez and had the opportunity to ask questions and assume patient care.
[2020-02-23] MEDS: morphine 10mg/0.5ml (conc. morphine) oral syringe PO PRN ×2 (19:00→22:35)
[2020-02-24] MEDS: morphine 10mg/0.5ml (conc. morphine) oral syringe PO PRN ×5 (03:13→22:56)
[2020-02-24] MEDS: HYDROmorphone 1 mg/ml syringe IV PRN ×3 (05:21→13:38)
--- NOTE | 2020-02-24 06:21 | NUR ---
Problems reprioritized. Patient report given, questions answered & plan of care reviewed with JUAN DIEGO Shane.
--- NOTE | 2020-02-24 06:29 | NUR ---
Patient in room ORTHO 4008. I have received report from Jazmin ADAMSON and had the opportunity to ask questions and assume patient care.
[2020-02-24] MEDS ORDERED: acetaminophen 325mg rectal suppository RC ONE (17:00)
[2020-02-24 18:00] VITALS: BP 144/68
--- NOTE | 2020-02-24 18:16 | NUR ---
Problems reprioritized. Patient report given, questions answered & plan of care reviewed with Jazmin .
--- NOTE | 2020-02-24 18:28 | NUR ---
Patient in room ORTHO 4008. I have received report from JUAN DIEGO Shane and had the opportunity to ask questions and assume patient care.
[2020-02-25] MEDS: morphine 10mg/0.5ml (conc. morphine) oral syringe PO PRN (01:44)
[2020-02-25] MEDS: HYDROmorphone 1 mg/ml syringe IV PRN ×7 (03:50→21:56)
--- NOTE | 2020-02-25 06:05 | NUR ---
Problems reprioritized. Patient report given, questions answered & plan of care reviewed with JUAN DIEGO Shane.
--- NOTE | 2020-02-25 06:29 | NUR ---
Patient in room ORTHO 4008. I have received report from Jazmin and had the opportunity to ask questions and assume patient care.
[2020-02-25 10:00] VITALS: BP 178/61
[2020-02-25] MEDS: LORazepam 2 mg/ml vial IV PRN ×2 (13:09→15:47)
[2020-02-25] MEDS ORDERED: HYDROmorphone 1 mg/ml syringe IV PRN (13:10)
--- NOTE | 2020-02-25 18:12 | NUR ---
Problems reprioritized. Patient report given, questions answered & plan of care reviewed with Jazmin.
--- NOTE | 2020-02-25 18:31 | NUR ---
Patient in room ORTHO 4008. I have received report from JUAN DIEGO Shane and had the opportunity to ask questions and assume patient care.
[2020-02-26] MEDS: LORazepam 2 mg/ml vial IV PRN ×2 (01:37→12:16)
[2020-02-26] MEDS: HYDROmorphone 1 mg/ml syringe IV PRN ×4 (05:41→15:25)
--- NOTE | 2020-02-26 06:18 | NUR ---
Problems reprioritized. Patient report given, questions answered & plan of care reviewed with JUAN DIEGO Coy.
--- NOTE | 2020-02-26 06:56 | NUR ---
Patient in room ORTHO 4008. I have received report from Iram ADAMSON and had the opportunity to ask questions and assume patient care.
[2020-02-26 10:00] VITALS: BP 104/44
[2020-02-26] MEDS ORDERED: acetaminophen 650mg rectal suppository RC PRN (11:55)
[2020-02-26] MEDS ORDERED: LORazepam 2 mg/ml vial IV PRN (13:10)
[2020-02-26] MEDS ORDERED: HYDROmorphone 1 mg/ml syringe IV PRN (13:10)
[2020-02-26] MEDS ORDERED: morphine 10mg/ml inj. IV PRN (13:10)
--- NOTE | 2020-02-26 16:30 | NUR ---
RN IS TO DOCUMENT YES TO ALL APPLICABLE AREAS Pronouncement of : 1. Time Physician Notified: Janeen Preciado 2. Date of : 02/26/20 3. Time of : 1608 4. DNR/Withdraw life support documented: Y 5. Monitor strip has been placed on chart: Y 6. Assessment process is of one-minute duration and includes following criteria: a) Patient is unresponsive to all stimuli: Y b) Pupils fixed and non-reactive: Y c) Auscultation of precordium reveals absence of heart tones: Y d) Auscultation of lungs reveals absence of breath sounds: Y e) Absence of blood pressure / all vital signs: Y f) QRS complexes are not present on monitor / EKG strip: Y g) Pacer spikes without capture: N/A 4. Comments: Patient was DNR with comfort care measures, patient progressed toward expiration through the entire shift. Last counted patient breathing was 42/min and had work of breathing. Patient was being checked on frequently during the later half of the shift. Patient was found with no breathe sounds, respiration, or heart sounds at this time. Family was notified, physician was notified, and donor network was called upon expiration. Mortuary was also notified and estimated to arrive at 1745.
--- NOTE | 2020-02-26 18:18 | NUR ---
PATIENT BUT REPORT OF EVENTS AND ENGINEERING INSTRUCTOR VIA MORTUARY GIVEN TO GUADALUPE ADAMSON, AWAITING ENGINEERING INSTRUCTOR AT THIS TIME.
== END 2020-02-26 16:01 | disposition expired | DRG 871 ==
LOC: ER 11:52 → ED HOLD 13:25 → SUR 3N 15:18 → CICU 2S 02-18 22:22 → ORTHO 4S 02-23 17:24
PROVIDERS: ADMIT Family Medicine; ATTEND Internal Medicine Critical Care Medicine
DX: A41.02 Sepsis due to Methicillin resistant Staphylococcus aureus (principal); I50.31 Acute diastolic (congestive) heart failure; N39.0 Urinary tract infection, site not specified; N17.9 Acute kidney failure, unspecified; I48.92 Unspecified atrial flutter; I48.21 Permanent atrial fibrillation; T88.6XXA Anaphylactic reaction due to adverse effect of correct drug or medicament properly administered, initial encounter; I49.5 Sick sinus syndrome; E11.9 Type 2 diabetes mellitus without complications; E78.00 Pure hypercholesterolemia, unspecified; E78.5 Hyperlipidemia, unspecified; I11.0 Hypertensive heart disease with heart failure; I25.10 Atherosclerotic heart disease of native coronary artery without angina pectoris; N40.0 Benign prostatic hyperplasia without lower urinary tract symptoms; R65.20 Severe sepsis without septic shock; R06.03 Acute respiratory distress; W18.39XA Other fall on same level, initial encounter; T36.0X5A Adverse effect of penicillins, initial encounter; R62.7 Adult failure to thrive; Z51.5 Encounter for palliative care; Y93.89 Activity, other specified; Y92.89 Other specified places as the place of occurrence of the external cause; Y99.8 Other external cause status; Z79.01 Long term (current) use of anticoagulants; Z80.52 Family history of malignant neoplasm of bladder; Z85.51 Personal history of malignant neoplasm of bladder; Z87.440 Personal history of urinary (tract) infections; Z88.1 Allergy status to other antibiotic agents; Z98.61 Coronary angioplasty status; Z88.0 Allergy status to penicillin; Z88.8 Allergy status to other drugs, medicaments and biological substances; Z68.28 Body mass index [BMI] 28.0-28.9, adult
CPT/HCPCS: 36415; 70491; 71045; 74018; 74176; 80048; 80053; 80069; 80202; 81001; 82550; 82948; 83605; 83615; 83735; 83880; 84100; 84132; 84134; 84145; 84439; 84443; 84484; 85025; 85610; 85651; 85730; 86430; 87040; 87077; 87081; 87088; 87186; 92508; 92616; 93005; 93306; 94640; 94760; 97110; 97162; 97530; 97535; 99285; G0378; J0461; J1170; J1644; J1650; J1885; J1940; J1956; J2060; J2185; J3370; J3480; J7030; J7040; J7050; Q9967